=== PATIENT | female | born 1995 | race Caucasian/White ===

== ENCOUNTER 2019-04-15 16:11 | Emergency (ER) | payer MEDICAID ==
[~2019-04-15] VITALS: Ht 165.1 cm; Wt 59.0 kg
--- NOTE | 2019-04-15 16:44 | NUR ---
Patient ambulated to bathroom with steady gait. Urine cup provided. Instructions for clean catch urine collection done, pending medcial screening exam by [email or web address].
--- NOTE | 2019-04-15 16:54 | NUR ---
Patient went to bathroom but did not provided urine specimen. "I forgot." per patient's verbalization. Patient immediately took snacks & drinks from the hospital-provided coffee cart.
--- NOTE | 2019-04-15 16:55 | NUR ---
2 [employer] officers x2 came for this patient.
--- NOTE | 2019-04-15 17:13 | NUR ---
Patient refused group home placement. "Just in case, [facility] but I want to be with my boyfriend. I don't need group home right now. Take that group home list away from me." per patient's verbalization. Patient was given written and verbal discharge instructions. Patient verbalizes understanding of instructions. Patient is ambulatory with steady gait. Patient adamantly refused offer of group home placement. Patient was also given a list of available shelters in surrounding area but refused to take the list. Patient took more coffee, water bottles and snacks from the coffee cart before leaving our ER department.
== END 2019-04-15 17:13 | disposition home or self-care (01) ==
LOC: ER 16:29
DX: Z00.00 Encounter for general adult medical examination without abnormal findings (principal); F29 Unspecified psychosis not due to a substance or known physiological condition; Z88.0 Allergy status to penicillin; Z59.0 Homelessness
CPT/HCPCS: A4663